=== PATIENT | male | born 1965 | race Hispanic/Latino ===

== ENCOUNTER 2024-09-16 11:45 | Outpatient (CLI) | payer OTHER ==
[2024-09-16 12:46] LABS: Hematocrit 48.9 % (38.8-50.0); Hemoglobin 16.4 g/dL (13.5-17.5); Mean Corpuscular HGB CONC 33.5 g/dL (32.0-36.0); Mean Corpuscular Hemoglobin 32.9 pg (27.0-33.0); Mean Corpuscular Volume 98.2 fL (81.2-95.1); Mean Platelet Volume 9.2 fL (7.4-10.4); Platelet Count 355 10x3/uL (150-450); RBC Distribution Width 12.7 % (11.5-14.5); Red Blood Cell (RBC) Count 4.98 10x6/uL (4.32-5.72); White Blood Cell (WBC) Count 11.91 10x3/uL (3.5-10.5)
[2024-09-16 13:10] LABS: Anion Gap 15 mmol/L (10-20); BUN (Urea Nitrogen) 9 mg/dL (8.4-25.7); Calc. Creatinine Clearance 0 mL/min (70-130); Calcium 9.4 mg/dL (7.8-10.44); Carbon Dioxide 24 mmol/L (23-31); Chloride 103 mmol/L (98-107); Estimated GFR 107; Glucose 99 mg/dL (80-115); Potassium 4.3 mmol/L (3.5-5.1); Sodium 138 mmol/L (136-145)
== END 2024-09-16 11:46 | disposition home or self-care (01) ==
LOC: CSHLAB 11:45
PROVIDERS: ATTEND Surgery
DX: Z01.818 Encounter for other preprocedural examination (principal); K40.90 Unilateral inguinal hernia, without obstruction or gangrene, not specified as recurrent
CPT/HCPCS: 80048; 85027; 93005; 93010

== ENCOUNTER 2024-09-17 05:47 | Day surgery (SDC) | payer OTHER ==
[2024-09-16 12:16] VITALS: BMI 20.3
[2024-09-17] MEDS ORDERED: Bupivacaine HCl 0.5%/Epinephrine 1:200,000/PF 30 ml Vial ONE (07:02)
[2024-09-17] MEDS ORDERED: CEFAZOLIN 2 GM VIAL ONE (07:16)
[2024-09-17] MEDS ORDERED: Lidocaine 1% PF 5 ML VIAL ONE (07:19)
[2024-09-17] MEDS ORDERED: Dexamethasone 20 MG/5 ML VIAL ONE (07:19)
[2024-09-17] MEDS ORDERED: Rocuronium Bromide 10 MG/ML (10ML VIAL) ONE (07:19)
[2024-09-17] MEDS ORDERED: PROPOFOL 20 ML ONE (07:19)
[2024-09-17] MEDS ORDERED: Ondansetron PF 4 MG/2 ML Vial ONE (07:19)
[2024-09-17] MEDS ORDERED: fentaNYL 50 mcg/mL 1 mL Vial ONE (07:19)
[2024-09-17] MEDS ORDERED: Ketorolac Tromethamine 30 MG (1 mL) VIAL ONE (07:20)
[2024-09-17] MEDS ORDERED: SUGAMMADEX SODIUM 200 MG/2 ML VIAL ONE (08:06)
[2024-09-17] MEDS ORDERED: HYDROcodone/Acetaminophen 5/325 mg Tablet ONE (08:58)
== END 2024-09-17 09:35 | disposition home or self-care (01) ==
LOC: CSHSDC 05:47
PROVIDERS: ATTEND Surgery
PROC: 0YQ54ZZ Repair Right Inguinal Region, Percutaneous Endoscopic Approach (ICD-10-PCS; principal; 2024-09-17)
DX: K40.90 Unilateral inguinal hernia, without obstruction or gangrene, not specified as recurrent (principal); E78.5 Hyperlipidemia, unspecified; F17.210 Nicotine dependence, cigarettes, uncomplicated; Z88.0 Allergy status to penicillin; Z79.1 Long term (current) use of non-steroidal anti-inflammatories (NSAID); Z79.899 Other long term (current) drug therapy
CPT/HCPCS: C1781; J1100; J1885; J2405; J2704; J3010; S2900